=== PATIENT | female | born 1990 | race Caucasian/White ===

== ENCOUNTER 2021-03-08 12:40 | Inpatient (IN) ==
[2021-03-08] MEDS ORDERED: 0.9 % Sodium Chloride 1,000 ML IVC ONE ×2 (13:14→16:01)
[2021-03-08 13:46] LABS: Hematocrit 33.3 % (35.3-44.9); Mean Corpuscular Volume 84.7 fL (83.0-100.0); Mean Platelet Volume 10.3 fL (9.4-12.4); Platelet Count 320 K/mcL (140-400); Red Blood Count 3.93 M/mcL (3.82-4.97); Red Cell Distribution Width 15.5 % (11.5-14.5); White Blood Count 22.7 K/mcL (4.3-11.1)
[2021-03-08 13:53] LABS: INR 1.4; Prothrombin Time 15.3 Seconds (9.4-12.1)
[2021-03-08 14:08] LABS: Troponin I 1.15 ng/mL (< 0.04)
[2021-03-08 14:09] LABS: Albumin 2.7 g/dL (3.5-5.7); Albumin/Globulin Ratio 0.8 (1.1-2.2); Bilirubin,Direct 0.8 mg/dL (0.0-0.2); Bilirubin,Indirect 0.5 mg/dL (0.0-1.0); Bilirubin,Total 1.3 mg/dL (0.3-1.0); Calcium 9.4 mg/dL (8.6-10.3); Globulin 3.4 g/dL (2.4-3.5); Magnesium 2.5 mg/dL (1.6-2.6); Potassium 3.1 mEq/L (3.5-5.1); Total Protein 6.1 g/dL (6.4-8.9)
[2021-03-08] MEDS ORDERED: Aspirin 325 MG TABLET PO ONE (14:11)
[2021-03-08] MEDS ORDERED: Cefepime HCl 2,000 MG in 0.9 % Sodium Chloride Mini Bag 100 ML IVPB ONE (14:11)
[2021-03-08 14:38] LABS: Lymphocytes # 2.7 K/mcL (0.6-4.6)
[2021-03-08 14:39] LABS: Platelet Clumps Few (Not Present); Platelet Estimate Normal (Normal); Reactive Lymphocytes Present (Not Present); Toxic Granulation Present (Not Present)
[2021-03-08 15:59] LABS: Bacteria,Urine Few per hpf (None-Few); Bilirubin,Urine Negative (Negative); Blood,Urine Small (Negative); Clarity,Urine Turbid (Clear); Color,Urine Yellow (Yellow); Glucose,Urine (UA) Normal (Normal); Ketones,Urine Negative (Negative); Leukocyte Esterase,Urine Small (Negative); Mucus,Urine Few per lpf (None-Few); Nitrite,Urine Negative (Negative); PH,Urine 5.5 pH Units (5.0-8.0); Protein,Urine 30 mg/dL (Neg-Trace); RBC,Urine 0-3 per hpf (0-3); Specific Gravity,Urine 1.011 (1.010-1.025); Squamous Epithelial Cell,Urine Moderate per hpf (None-Few); Urobilinogen,Urine Normal (Normal); WBC,Urine 15-30 per hpf (0-3)
[2021-03-08] MEDS ORDERED: Ibuprofen 400 MG TABLET PO PRN (17:02)
[2021-03-08] MEDS ORDERED: Naloxone 0.4 MG/ML INJ IVP PRN (17:02)
[2021-03-08] MEDS ORDERED: Ondansetron ODT 4 MG TAB.RAPDIS SL PRN (17:02)
[2021-03-08] MEDS ORDERED: Melatonin 3 MG TABLET PO PRN (17:02)
[2021-03-08] MEDS ORDERED: Perflutren Lipid Microsphere 1.3 ML in 0.9 % Sodium Chloride 8.7 ML IVP PRN (17:46)
[2021-03-08] MEDS ORDERED: *HR* Enoxaparin 30 MG/0.3 ML SYRINGE SQ SCH (18:00)
[2021-03-08] MEDS: *HR* Enoxaparin 30 MG/0.3 ML SYRINGE SQ SCH (18:44)
[2021-03-08] MEDS: 0.9 % Sodium Chloride w KCl 20 MEQ/1,000 ML MLS IVC SCH (18:45)
[2021-03-08] MEDS: Azithromycin 500 MG in 0.9 % Sodium Chloride 250 ML IVPB SCH (20:11)
[2021-03-08 20:54] LABS: Amphetamine Screen,Urine Negative ng/mL (Cutoff=1000); Barbiturate Screen,Urine Negative ng/mL (Cutoff=200); Benzodiazepines Screen,Urine Negative ng/mL (Cutoff=200); Cannabinoid Screen,Urine Negative ng/mL (Cutoff = 50); Cocaine Screen,Urine Negative ng/mL (Cutoff= 300); Opiate Screen,Urine Negative ng/mL (Cutoff=300); Phencyclidine Screen,Urine Negative ng/mL (Cutoff=25)
[2021-03-08 21:16] LABS: Adenovirus Not Detected (Not Detect); Bordetella Pertussis Not Detected (Not Detect); Chlamydophila pneumoniae Not Detected (Not Detect); Coronavirus 229E Not Detected (Not Detect); Coronavirus HKU1 Not Detected (Not Detect); Coronavirus NL63 Not Detected (Not Detect); Coronavirus OC43 Not Detected (Not Detect); Human Metapneumovirus Not Detected (Not Detect); Human Rhinovirus/Enterovirus Not Detected (Not Detect); Influenza A Subtype 2009 H1 Not Detected (Not Detect); Influenza B Not Detected (Not Detect); Mycoplasma pneumoniae Not Detected (Not Detect); Parainfluenza Virus 1 Not Detected (Not Detect); Parainfluenza Virus 2 Not Detected (Not Detect); Parainfluenza Virus 3 Not Detected (Not Detect); Parainfluenza Virus 4 Not Detected (Not Detect); Respiratory Syncytial Virus Not Detected (Not Detect); SARS-CoV-2 Not Detected (Not Detect)
[2021-03-09] MEDS: Piperacillin/Tazobactam 3.375 GM in 0.9 % Sodium Chloride Mini Bag 100 ML IVPB SCH ×2 (00:24→08:59)
[2021-03-09] MEDS: 0.9 % Sodium Chloride w KCl 20 MEQ/1,000 ML MLS IVC SCH ×3 (04:22→21:38)
[2021-03-09] MEDS: Ampicillin/Sulbactam 3,000 MG in 0.9 % Sodium Chloride Mini Bag 100 ML IVPB SCH ×3 (11:50→23:48)
[2021-03-09] MEDS: *HR* Enoxaparin 30 MG/0.3 ML SYRINGE SQ SCH (17:29)
[2021-03-09] MEDS: Azithromycin 500 MG in 0.9 % Sodium Chloride 250 ML IVPB SCH (19:51)
[2021-03-10 05:07] LABS: Hematocrit 29.1 % (35.3-44.9); Mean Corpuscular HGB Conc 32.3 g/dL (31.6-35.5); Mean Corpuscular Hemoglobin 27.2 pg (28.0-33.3); Mean Corpuscular Volume 84.3 fL (83.0-100.0); Mean Platelet Volume 9.7 fL (9.4-12.4); Platelet Count 289 K/mcL (140-400); Red Blood Count 3.45 M/mcL (3.82-4.97); Red Cell Distribution Width 15.9 % (11.5-14.5); White Blood Count 18.7 K/mcL (4.3-11.1)
[2021-03-10 05:26] LABS: Alanine Aminotransferase 37 Units/L (7-52); Albumin 2.5 g/dL (3.5-5.7); Albumin/Globulin Ratio 0.8 (1.1-2.2); Alkaline Phosphatase 272 Units/L (34-104); Aspartate Amino Transferase 60 Units/L (13-39); BUN/Creatinine Ratio 33 (6-26); Bilirubin,Total 0.6 mg/dL (0.3-1.0); Blood Urea Nitrogen 35 mg/dL (6-20); Calcium 8.6 mg/dL (8.6-10.3); Carbon Dioxide 19 mEq/L (23-29); Chloride 109 mEq/L (98-107); Chol/HDL Ratio 36.7 (0-4.9); Globulin 3.3 g/dL (2.4-3.5); Glucose 73 mg/dL (70-105); Osmolality,Calculated 291 (280-300); Phosphorous 4.2 mg/dL (2.7-4.5); Potassium 3.5 mEq/L (3.5-5.1); Sodium 137 mEq/L (136-145); Total Protein 5.8 g/dL (6.4-8.9); eGFR For African Americans > 60 (> 60); eGFR For Non-African Americans > 60 (> 60)
[2021-03-10] MEDS: Ampicillin/Sulbactam 3,000 MG in 0.9 % Sodium Chloride Mini Bag 100 ML IVPB SCH ×2 (05:31→11:39)
[2021-03-10 05:36] LABS: Hemoglobin 9.4 g/dL (11.5-15.4)
[2021-03-10 05:37] LABS: Estimated Average Glucose 126 mg/dl
[2021-03-10 06:06] LABS: Hepatitis B Surface Antigen Nonreactive (Nonreactive)
[2021-03-10 06:35] LABS: Hepatitis B Core IgM Nonreactive (Nonreactive)
[2021-03-10 06:36] LABS: Hepatitis C Virus Antibody Nonreactive (Nonreactive)
[2021-03-10 06:37] LABS: Hepatitis A Antibody IgM Nonreactive (Nonreactive)
[2021-03-10 07:07] LABS: Anisocytosis 1+ (Not Present); Eosinophils # 0.4 K/mcL (0.0-0.6); Platelet Estimate Normal (Normal)
[2021-03-10] MEDS ORDERED: Ringers Solution, Lactated 1,000 ML IVC SCH (09:30)
[2021-03-10 09:47] LABS: Rheumatoid Factor < 10 IU/mL (Less than 14)
[2021-03-10] MEDS ORDERED: Lidocaine Viscous Oral Soln 15 ML SOLUTION MM PRN (12:53)
[2021-03-10] MEDS ORDERED: 0.9 % Sodium Chloride 500 ML IV ONE (12:58)
[2021-03-10] MEDS ORDERED: *HR* Midazolam HCl 2 MG/2 ML VIAL IVP PRN (13:14)
[2021-03-10] MEDS ORDERED: *HR* Midazolam HCl 5 MG/5 ML VIAL IVP ONE ×2 (13:18)
[2021-03-10] MEDS ORDERED: 0.9 % Sodium Chloride 500 ML IVC ONE (13:21)
[2021-03-10] MEDS: *HR* FentaNYL (PF) 100 MCG/2 ML VIAL IVP PRN ×2 (13:25→13:30)
[2021-03-10] MEDS: Penicillin G Potassium 4,000,000 UNIT in 0.9 % Sodium Chloride 100 ML IVPB SCH ×3 (16:58→23:32)
[2021-03-10] MEDS: *HR* Enoxaparin 40 MG/0.4 ML SYRINGE SQ SCH (17:55)
[2021-03-10] MEDS: Clindamycin 600 MG/50 ML 600 MG/50 ML IV.SOLN IVPB SCH (17:57)
[2021-03-10] MEDS: Lactobacillus 1 EACH CAP.SPRINK PO SCH (20:33)
[2021-03-10] MEDS: Doxycycline 100 MG CAPSULE PO SCH (20:33)
[2021-03-11] MEDS: Clindamycin 600 MG/50 ML 600 MG/50 ML IV.SOLN IVPB SCH ×4 (00:42→23:12)
[2021-03-11 01:41] LABS: Hematocrit 28.4 % (35.3-44.9); Mean Corpuscular HGB Conc 31.7 g/dL (31.6-35.5); Mean Corpuscular Hemoglobin 26.8 pg (28.0-33.3); Mean Corpuscular Volume 84.5 fL (83.0-100.0); Mean Platelet Volume 10.1 fL (9.4-12.4); Platelet Count 258 K/mcL (140-400); Red Blood Count 3.36 M/mcL (3.82-4.97); White Blood Count 13.8 K/mcL (4.3-11.1)
[2021-03-11 01:58] LABS: BUN/Creatinine Ratio 33 (6-26); Blood Urea Nitrogen 23 mg/dL (6-20); Calcium 8.3 mg/dL (8.6-10.3); Carbon Dioxide 18 mEq/L (23-29); Chloride 109 mEq/L (98-107); Glucose 83 mg/dL (70-105); Osmolality,Calculated 289 (280-300); Potassium 3.5 mEq/L (3.5-5.1); Sodium 138 mEq/L (136-145); eGFR For African Americans > 60 (> 60); eGFR For Non-African Americans > 60 (> 60)
[2021-03-11] MEDS: Penicillin G Potassium 4,000,000 UNIT in 0.9 % Sodium Chloride 100 ML IVPB SCH ×5 (04:03→19:55)
[2021-03-11] MEDS: Doxycycline 100 MG CAPSULE PO SCH ×2 (07:35→19:56)
[2021-03-11] MEDS: Lactobacillus 1 EACH CAP.SPRINK PO SCH ×2 (07:35→19:56)
[2021-03-11] MEDS: *HR* Enoxaparin 40 MG/0.4 ML SYRINGE SQ SCH (17:09)
[2021-03-11] MEDS: Acetaminophen 325 MG TABLET PO PRN (22:20)
[2021-03-12] MEDS: Penicillin G Potassium 4,000,000 UNIT in 0.9 % Sodium Chloride 100 ML IVPB SCH ×3 (00:18→07:50)
[2021-03-12 01:27] LABS: Hematocrit 27.7 % (35.3-44.9); Hemoglobin 8.8 g/dL (11.5-15.4); Mean Corpuscular HGB Conc 31.8 g/dL (31.6-35.5); Mean Corpuscular Hemoglobin 27.2 pg (28.0-33.3); Mean Corpuscular Volume 85.5 fL (83.0-100.0); Mean Platelet Volume 10.2 fL (9.4-12.4); Platelet Count 243 K/mcL (140-400); Red Blood Count 3.24 M/mcL (3.82-4.97)
[2021-03-12 01:46] LABS: BUN/Creatinine Ratio 26 (6-26); Blood Urea Nitrogen 14 mg/dL (6-20); Calcium 8.2 mg/dL (8.6-10.3); Carbon Dioxide 20 mEq/L (23-29); Chloride 110 mEq/L (98-107); Glucose 98 mg/dL (70-105); Osmolality,Calculated 286 (280-300); Potassium 3.8 mEq/L (3.5-5.1); Sodium 138 mEq/L (136-145); eGFR For African Americans > 60 (> 60); eGFR For Non-African Americans > 60 (> 60)
[2021-03-12] MEDS: Acetaminophen 325 MG TABLET PO PRN ×2 (07:49→14:19)
[2021-03-12] MEDS: Doxycycline 100 MG CAPSULE PO SCH (07:50)
[2021-03-12] MEDS: Clindamycin 600 MG/50 ML 600 MG/50 ML IV.SOLN IVPB SCH (07:50)
[2021-03-12] MEDS: Lactobacillus 1 EACH CAP.SPRINK PO SCH (07:50)
[2021-03-12] MEDS ORDERED: cefTRIAXone 2,000 MG in 0.9 % Sodium Chloride Mini Bag 100 ML IVPB SCH (13:00)
[2021-03-12 15:56] VITALS: BP 142/86; PULSE 101; TEMP 97.7; O2SAT 98
== END 2021-03-12 17:42 | disposition home health service (06) | DRG 871 ==
LOC: 2NENU 12:40 → EMEROOARM 12:40 → SUATTDRO 16:52 → 2NENU 17:36
PROVIDERS: ADMIT Family Medicine; ATTEND Family Medicine